=== PATIENT | male | born 1990 | race Caucasian/White ===

== ENCOUNTER → 2016-09-14 | Outpatient (CLI) | payer BC ==
[2016-09-14 08:58] LABS: HEMATOCRIT 41.9 % (42.0-52.0); HEMOGLOBIN 13.6 g/dl (14.0-18.0); MEAN CELL VOLUME 92.7 fl (80.0-94.0); MEAN CORPUSCULAR HGB 30.1 pg (27.0-31.0); MEAN CORPUSCULAR HGB CONC 32.5 g/dl (33.0-37.0); MEAN PLATELET VOLUME 9.6 fl (9.6-12.3); PLATELET COUNT AUTOMATED 371 10*3/uL (130-400); RED BLOOD COUNT 4.52 10*6/uL (4.50-5.90); RED CELL DISTRI WIDTH 11.2 % (0-14.5); WHITE BLOOD COUNT 6.2 10*3/uL (4.8-10.8)
[2016-09-14 08:59] LABS: BILIRUBIN NEGATIVE (NEGATIVE); BLOOD 3+ (NEGATIVE); CLARITY CLEAR (CLEAR); COLOR YELLOW (YELLOW); GLUCOSE NEGATIVE (NEGATIVE); KETONE NEGATIVE (NEGATIVE); LEUKO ESTERASE NEGATIVE (NEGATIVE); NITRITE NEGATIVE (NEGATIVE); PH 5.5 (5.0-9.0); PROTEIN NEGATIVE (NEGATIVE); SPECIFIC GRAVITY 1.015 (1.005-1.030); UROBILINOGEN 0.2 E.U./dl (0.2-1.0)
[2016-09-14 09:13] LABS: WBC 0-2 wbc/hpf (0-5)
[2016-09-14 09:14] LABS: BACTERIA TRACE
[2016-09-14 09:27] LABS: BASOPHIL # 0.1 10*3/uL (0-0.1); BASOPHILS 1 % (0-1); EOSINOPHIL # 0.2 10*3/uL (0-0.4); EOSINOPHILS 4 % (1-4); METAMYELOCYTES 2 % (0-0); MONOCYTE # 1.1 10*3/uL (0.1-1.0); NEUTROPHIL # 3.7 10*3/uL (2.3-7.9); NEUTROPHILS 59 % (47-73); PLATELET SUFFICIENCY NORMAL (NORMAL); TOTAL CELLS COUNTED 100 #CELLS
[2016-09-14 09:35] LABS: ALBUMIN 3.7 gm/dl (3.1-4.5); ALKALINE PHOSPHATASE 83 U/L (45-117); BILIRUBIN, TOTAL 0.5 mg/dl (0.2-1.0); BUN 12 mg/dl (7-24); CARBON DIOXIDE 28 mmol/L (21-32); CHLORIDE 109 mmol/L (98-107); EST GLOM FILT AFRICAN AMERICAN > 60 ml/min; GLUCOSE 95 mg/dL (65-99); POTASSIUM 3.7 mmol/L (3.5-5.1); SGOT/AST 12 IU/L (3-35); SGPT/ALT 16 U/L (12-78); SODIUM 144 mmol/L (136-145); TOTAL PROTEIN 7.3 gm/dL (6.4-8.2)
== END | disposition home or self-care (01) ==
LOC: LAB 08:23
PROVIDERS: Internal Medicine
DX: R50.9 Fever, unspecified (principal)

== ENCOUNTER → 2016-09-15 | Outpatient (CLI) | payer BC ==
[2016-09-15 13:14] LABS: BASO % 0.7 % (0.0-1.0); BILIRUBIN NEGATIVE (NEGATIVE); BLOOD 1+ (NEGATIVE); CLARITY CLEAR (CLEAR); COLOR YELLOW (YELLOW); EOS # 0.1 10*3/uL (0.0-0.4); EOS % 2.3 % (1.0-4.0); GLUCOSE NEGATIVE (NEGATIVE); KETONE NEGATIVE (NEGATIVE); LEUKO ESTERASE NEGATIVE (NEGATIVE); LYMPH # 1.8 10*3/uL (1.3-4.4); LYMPH % 31.4 % (27.0-41.0); MEAN CELL VOLUME 93.5 fl (80.0-94.0); MEAN CORPUSCULAR HGB 30.4 pg (27.0-31.0); MEAN CORPUSCULAR HGB CONC 32.6 g/dl (33.0-37.0); MEAN PLATELET VOLUME 9.4 fl (9.6-12.3); MONO # 0.8 10*3/uL (0.1-1.0); MONO % 13.6 % (3.0-9.0); NEUT # 2.9 10*3/uL (2.3-7.9); NEUT % 51.3 % (47.0-73.0); NITRITE NEGATIVE (NEGATIVE); PH 5.5 (5.0-9.0); PLATELET COUNT AUTOMATED 376 10*3/uL (130-400); PROTEIN NEGATIVE (NEGATIVE); RED CELL DISTRI WIDTH 11.2 % (0-14.5); SPECIFIC GRAVITY <= 1.005 (1.005-1.030); UROBILINOGEN 0.2 E.U./dl (0.2-1.0); WHITE BLOOD COUNT 5.7 10*3/uL (4.8-10.8)
[2016-09-15 13:45] LABS: BUN 9 mg/dl (7-24); CARBON DIOXIDE 32 mmol/L (21-32); CHLORIDE 106 mmol/L (98-107); EST GLOM FILT AFRICAN AMERICAN > 60 ml/min; GLUCOSE 96 mg/dL (65-99); LDH 146 U/L (87-241); POTASSIUM 4.4 mmol/L (3.5-5.1); SODIUM 143 mmol/L (136-145)
== END | disposition home or self-care (01) ==
LOC: LAB 12:51
PROVIDERS: Internal Medicine
DX: R06.02 Shortness of breath (principal); R53.83 Other fatigue; R50.9 Fever, unspecified

== ENCOUNTER → 2016-09-17 | Outpatient (CLI) | payer BC | END | disposition home or self-care (01) | LOC: US 10:27 | DX: R31.29 Other microscopic hematuria (principal) ==

== ENCOUNTER → 2016-09-21 | Outpatient (CLI) | payer BC | END | disposition home or self-care (01) | LOC: US 13:35 | DX: M79.602 Pain in left arm (principal) ==

== ENCOUNTER → 2016-09-22 | Outpatient (CLI) | payer BC ==
[2016-09-22 11:18] LABS: BILIRUBIN NEGATIVE (NEGATIVE); BLOOD 1+ (NEGATIVE); CLARITY CLEAR (CLEAR); COLOR YELLOW (YELLOW); GLUCOSE NEGATIVE (NEGATIVE); KETONE NEGATIVE (NEGATIVE); LEUKO ESTERASE NEGATIVE (NEGATIVE); NITRITE NEGATIVE (NEGATIVE); PROTEIN NEGATIVE (NEGATIVE); SPECIFIC GRAVITY <= 1.005 (1.005-1.030); UROBILINOGEN 0.2 E.U./dl (0.2-1.0)
[2016-09-22 11:30] LABS: BACTERIA TRACE; BASO % 0.6 % (0.0-1.0); EOS # 0.1 10*3/uL (0.0-0.4); EOS % 1.9 % (1.0-4.0); EPITHELIAL CELLS 0-2; HEMATOCRIT 43.9 % (42.0-52.0); IG # 0.1 10*3/uL (0.0-0.1); LYMPH # 2.5 10*3/uL (1.3-4.4); MEAN CELL VOLUME 92.6 fl (80.0-94.0); MEAN CORPUSCULAR HGB 29.5 pg (27.0-31.0); MEAN CORPUSCULAR HGB CONC 31.9 g/dl (33.0-37.0); MONO # 0.8 10*3/uL (0.1-1.0); MONO % 12.1 % (3.0-9.0); NEUT # 3.1 10*3/uL (2.3-7.9); NEUT % 46.8 % (47.0-73.0); PLATELET COUNT AUTOMATED 394 10*3/uL (130-400); RED BLOOD COUNT 4.74 10*6/uL (4.50-5.90); RED CELL DISTRI WIDTH 11.2 % (0-14.5); WBC 0-2 wbc/hpf (0-5); WHITE BLOOD COUNT 6.7 10*3/uL (4.8-10.8)
[2016-09-22 11:48] LABS: ALBUMIN 3.9 gm/dl (3.1-4.5); ALKALINE PHOSPHATASE 86 U/L (45-117); BILIRUBIN, TOTAL 0.4 mg/dl (0.2-1.0); BUN 9 mg/dl (7-24); CARBON DIOXIDE 35 mmol/L (21-32); CHLORIDE 105 mmol/L (98-107); EST GLOM FILT AFRICAN AMERICAN > 60 ml/min; GLUCOSE 68 mg/dL (65-99); POTASSIUM 4.1 mmol/L (3.5-5.1); SGOT/AST 12 IU/L (3-35); SGPT/ALT 21 U/L (12-78); SODIUM 142 mmol/L (136-145); TOTAL PROTEIN 7.3 gm/dL (6.4-8.2)
== END | disposition home or self-care (01) ==
LOC: LAB 11:01
PROVIDERS: Internal Medicine
DX: N19 Unspecified kidney failure (principal)

== ENCOUNTER → 2016-12-23 | Outpatient (CLI) | payer OTHER ==
[2016-12-23 07:56] LABS: BASO % 0.6 % (0.0-1.0); EOS # 0.2 10*3/uL (0.0-0.4); EOS % 2.2 % (1.0-4.0); HEMATOCRIT 42.8 % (42.0-52.0); HEMOGLOBIN 14.1 g/dl (14.0-18.0); IG # 0.1 10*3/uL (0.0-0.1); LYMPH % 28.9 % (27.0-41.0); MEAN CELL VOLUME 91.8 fl (80.0-94.0); MEAN CORPUSCULAR HGB 30.3 pg (27.0-31.0); MEAN CORPUSCULAR HGB CONC 32.9 g/dl (33.0-37.0); MEAN PLATELET VOLUME 8.5 fl (9.6-12.3); MONO # 0.8 10*3/uL (0.1-1.0); MONO % 10.8 % (3.0-9.0); NEUT % 56.6 % (47.0-73.0); PLATELET COUNT AUTOMATED 399 10*3/uL (130-400); RED BLOOD COUNT 4.66 10*6/uL (4.50-5.90); RED CELL DISTRI WIDTH 11.3 % (0-14.5)
== END | disposition home or self-care (01) ==
LOC: LAB 07:36
PROVIDERS: Internal Medicine Hospice and Palliative Medicine
DX: R50.9 Fever, unspecified (principal)

== ENCOUNTER → 2017-07-22 | Outpatient (CLI) | payer OTHER | END | disposition home or self-care (01) | LOC: CT 13:03 | DX: R31.29 Other microscopic hematuria (principal) ==

== ENCOUNTER → 2017-07-26 | Outpatient (CLI) | payer OTHER | END | disposition home or self-care (01) | LOC: RAD 14:25 | DX: R91.1 Solitary pulmonary nodule (principal) ==

== ENCOUNTER → 2017-08-30 | Outpatient (CLI) | payer OTHER | END | disposition home or self-care (01) | LOC: RESCLI 11:41 | DX: F90.9 Attention-deficit hyperactivity disorder, unspecified type (principal); Z88.0 Allergy status to penicillin ==